=== PATIENT | male | born 1955 | race Caucasian/White ===

== ENCOUNTER 2016-04-28 12:47 | Emergency (ER) | payer SELFPAY ==
[~2016-04-28 12:47] MED LIST: Z.0.NO CURRENT MEDS
[2016-04-28 12:54] VITALS: BP 133/94; PULSE 73; RESP 20; TEMP 97.5; O2SAT 100
[2016-04-28] MEDS ORDERED: SODIUM CHLOR 0.9% 1000 ML INJ 1,000 ML IV SCH (13:23)
[2016-04-28] MEDS ORDERED: BACT800T5 PO (13:26)
[2016-04-28] MEDS ORDERED: TAMS0.4C4 PO (13:26)
--- NOTE | 2016-04-28 13:27 | PD ---
HPI Chief Complaint: Flank/Kidney Pain Time Seen by Provider: 13:23 Travel History International Travel<30 days: No Contact w/Intl Traveler<30days: No Traveled to known affect area: No History of Present Illness HPI 61-year-old male with history of kidney stones, presents to the ER today because he has had 3 days history of right flank pain and blood in the urine. He denies any fevers, vomiting, diarrhea, or any other symptoms. He states that the pain was a 10 out 10 last night but today is an 8 out of 10. Symptoms are occurring the same areas where he had kidney stones and he had talked to his primary care doctor, was told that he is possibly passing a stone and has been given Flomax and Bactrim. Modifying Factors: None Associated Signs & Symptoms: Right flank pain for 3 days Risk Factors: History of kidney stones PFSH Past Medical History Kidney Stones: Yes Social History Alcohol Use: Yes (OCCASIONALLY) Tobacco Use: No Substance Use: No Allergies-Medications (Allergen,Severity, Reaction): Coded Allergies: No Known Allergies (Verified , 04/28/16) Reported Meds & Prescriptions Reported Meds & Active Scripts Active Reported Tamsulosin (Tamsulosin HCl) 0.4 Mg Cap 0.4 Mg PO HS Bactrim DS (Sulfamethoxazole-Trimethoprim) 800-160 Mg Tab 1 Tab PO BID Review of Systems Except as stated in HPI: all other systems reviewed are Neg Physical Exam Narrative GENERAL: Well-nourished, well-developed elderly white male patient in no acute distress breath. SKIN: Warm and dry. HEAD: Normocephalic. EYES: No scleral icterus. No injection or drainage. NECK: Supple, trachea midline. CARDIOVASCULAR: Regular rate and rhythm without murmurs, gallops, or rubs. RESPIRATORY: Breath sounds equal bilaterally. No accessory muscle use. GASTROINTESTINAL: Abdomen soft, non-tender, nondistended. Benign. MUSCULOSKELETAL: No cyanosis, or edema. BACK: Nontender without obvious deformity. Mild right CVA tenderness. Data Data Last Documented VS Vital Signs Date Time Temp Pulse Resp B/P Pulse Ox O2 Delivery O2 Flow Rate FiO2 04/28/16 13:45 94 Room Air 04/28/16 13:40 69 16 116/71 04/28/16 12:54 97.5 Orders Complete Blood Count With Diff (04/28/16 13:23) Comprehensive Metabolic Panel (04/28/16 13:23) Lipase (04/28/16 13:23) Urinalysis - C+S If Indicated (04/28/16 13:23) Ct Abd/Pel W/O Iv Contrast (04/28/16 13:23) Iv Access Insert/Monitor (04/28/16 13:23) Ecg Monitoring (04/28/16 13:23) Oximetry (04/28/16 13:23) Morphine Inj (Morphine Inj) (04/28/16 13:30) Ondansetron Inj (Zofran Inj) (04/28/16 13:30) Sodium Chlor 0.9% 1000 Ml Inj (Ns 1000 M (04/28/16 13:23) Sodium Chloride 0.9% Flush (Ns Flush) (04/28/16 13:30) Labs Laboratory Tests Test 04/28/16 13:30 White Blood Count 8.1 TH/MM3 Red Blood Count 4.74 MIL/MM3 Hemoglobin 15.1 GM/DL Hematocrit 43.1 % Mean Corpuscular Volume 91.1 FL Mean Corpuscular Hemoglobin 31.9 PG Mean Corpuscular Hemoglobin 35.0 % Concent Red Cell Distribution Width 11.6 % Platelet Count 185 TH/MM3 Mean Platelet Volume 8.2 FL Neutrophils (%) (Auto) 75.3 % Lymphocytes (%) (Auto) 16.9 % Monocytes (%) (Auto) 5.9 % Eosinophils (%) (Auto) 0.8 % Basophils (%) (Auto) 1.1 % Neutrophils # (Auto) 6.0 TH/MM3 Lymphocytes # (Auto) 1.4 TH/MM3 Monocytes # (Auto) 0.5 TH/MM3 Eosinophils # (Auto) 0.1 TH/MM3 Basophils # (Auto) 0.1 TH/MM3 CBC Comment DIFF FINAL Differential Comment Urine Color YELLOW Urine Turbidity HAZY Urine pH 6.0 Urine Specific [place] 1.022 Urine Protein TRACE mg/dL Urine Glucose (UA) NEG mg/dL Urine Ketones 15 mg/dL Urine Occult Blood LARGE Urine Nitrite NEG Urine Bilirubin NEG Urine Leukocyte Esterase NEG Urine RBC INNUM /hpf Urine WBC 0-2 /hpf Urine Squamous Epithelial 0-5 /hpf Cells Urine Bacteria RARE /hpf Urine Mucus RARE /lpf Microscopic Urinalysis Comment CULT NOT INDICATED Sodium Level 140 MEQ/L Potassium Level 3.4 MEQ/L Chloride Level 105 MEQ/L Carbon Dioxide Level 24.1 MEQ/L Anion Gap 11 MEQ/L Blood Urea Nitrogen 24 MG/DL Creatinine 1.20 MG/DL Estimat Glomerular Filtration 61 ML/MIN Rate Random Glucose 120 MG/DL Calcium Level 9.0 MG/DL Total Bilirubin 0.6 MG/DL Aspartate Amino Transf 24 U/L (AST/SGOT) Alanine Aminotransferase 39 U/L (ALT/SGPT) Alkaline Phosphatase 64 U/L Total Protein 7.2 GM/DL Albumin 3.6 GM/DL Lipase 147 U/L MDM Medical Decision Making Medical Screen Exam Complete: Yes Emergency Medical Condition: Yes Medical Record Reviewed: Yes Interpretation(s) Laboratory Tests Test 04/28/16 13:30 Neutrophils (%) (Auto) 75.3 % (16.0-70.0) Urine Turbidity HAZY (CLEAR) Urine Ketones 15 mg/dL (NEG) Urine Occult Blood LARGE (NEG) Urine RBC INNUM /hpf (0-3) Urine Bacteria RARE /hpf (NONE) Potassium Level 3.4 MEQ/L (3.5-5.1) Blood Urea Nitrogen 24 MG/DL (7-18) Estimat Glomerular Filtration 61 ML/MIN (>89) Rate Random Glucose 120 MG/DL (74-106) Differential Diagnosis Right flank painrenal colic versus musculoskeletal versus pyelonephritis/UTI versus cholecystitis Narrative Course Labwork shows hematuria with no signs of UTI. His CT shows a 5 mm stone at the distal ureter, likely the cause of his current symptoms. At this point, my plan would be to release him with follow-up to primary care physician. Return for any worsening in symptoms as necessary. The plan has been discussed with him and he states understanding. Diagnosis Primary Impression: UNSPECIFIED RENAL COLIC Med/Other Pt SpecificInfo: Prescription(s) given Scripts Hydrocodone-Acetaminophen (Lortab)5-325 Mg Tab1 Tab PO Q6H PRN (PAIN) #12 TAB Ref 0 Prov:Richie Rader MD 04/28/16 Ibuprofen (Motrin Ib)200 Mg Nce577 Mg PO Q6H PRN (PAIN SCALE 1 TO 10) #20 TAB Ref 0 Prov:Richie Rader MD 04/28/16 Disposition: DISCHARGE HOME Condition: Stable Richie Rader MD Apr 28, 2016 13:27
[2016-04-28] MEDS ORDERED: SODIUM CHLORIDE 0.9% FLUSH 5 ML FLUSH IVF PRN (13:30)
[2016-04-28] MEDS ORDERED: ONDANSETRON HCL 4 MG/2 ML VIAL IVP ONE (13:30)
[2016-04-28] MEDS: MORPHINE SULFATE 4 MG/ML INJ IV PUSH ONE ×2 (13:30→13:39)
[2016-04-28 13:38] LABS: BASOPHIL # 0.1 TH/MM3 (0-0.2); BASOPHIL % 1.1 % (0.0-2.0); EOSINOPHIL # 0.1 TH/MM3 (0-0.4); EOSINOPHIL % 0.8 % (0.0-4.0); HEMATOCRIT 43.1 % (39.0-51.0); LYMPH % 16.9 % (9.0-44.0); LYMPHOCYTE # 1.4 TH/MM3 (1.0-4.8); MEAN CELL VOLUME 91.1 FL (80.0-100.0); MEAN CORPUSCULAR HEMOGLOBIN 31.9 PG (27.0-34.0); MONO % 5.9 % (0.0-8.0); NEUT % 75.3 % (16.0-70.0); PLATELET COUNT 185 TH/MM3 (150-450); RED BLOOD COUNT 4.74 MIL/MM3 (4.50-5.90); RED CELL DISTRIBUTION WIDTH 11.6 % (11.6-17.2); WHITE BLOOD COUNT 8.1 TH/MM3 (4.0-11.0)
[2016-04-28 13:40] VITALS: BP 116/71; PULSE 69; RESP 16; O2SAT 94
[2016-04-28 13:40] LABS: BLOOD, URINE LARGE (NEG); GLUCOSE,URINE NEG (NEG); KETONE, URINE 15 mg/dL (NEG); NITRITE,URINE NEG (NEG)
[2016-04-28 13:45] VITALS: O2SAT 94
[2016-04-28 13:48] LABS: CHLORIDE 105 MEQ/L (98-107); POTASSIUM 3.4 MEQ/L (3.5-5.1); SODIUM (NA) 140 MEQ/L (136-145); URINE COLOR YELLOW (YELLW/STRAW)
[2016-04-28 13:50] LABS: RBC, URINE INNUM /hpf (0-3); WBC, URINE 0-2 /hpf (0-5)
[2016-04-28 13:51] LABS: BACTERIA, URINE RARE /hpf; COMMENT (UR) CULT NOT INDICATED; CULTURE IF INDICATED CULT NOT INDICATED; MUCUS URINE RARE /lpf (OCC); SQUAMOUS EPITHELIAL CELL URINE 0-5 /hpf (0-5)
[2016-04-28 13:52] LABS: ANION GAP 11 MEQ/L (5-15); BICARBONATE 24.1 MEQ/L (21.0-32.0); BLOOD UREA NITROGEN 24 MG/DL (7-18)
[2016-04-28 13:53] LABS: HEMO FLAGS DIFF FINAL
[2016-04-28 13:55] LABS: ALT (GPT) 39 U/L (12-78); AST (GOT) 24 U/L (15-37); GLOMERULAR FILTRATION RATE 61 ML/MIN (>89)
[2016-04-28 13:56] LABS: TOTAL BILIRUBIN ADULT 0.6 MG/DL (0.2-1.0)
[2016-04-28 13:57] LABS: ALKALINE PHOSPHATASE 64 U/L (45-117)
--- NOTE | 2016-04-28 14:28 | RADHPO ---
EXAM DATE/TIME: 04/28/2016 14:01 [facility] COMPARISON: No previous studies available for comparison. INDICATIONS : Right flank pain x 3 days. ORAL CONTRAST: No oral contrast ingested. RADIATION DOSE: 11.01 CTDIvol (mGy) MEDICAL HISTORY : Renal calculi. SURGICAL HISTORY : Lithotripsy. ENCOUNTER: Initial ACUITY: 3 days PAIN SCALE: 8/10 LOCATION: Right flank TECHNIQUE: Volumetric scanning of the abdomen and pelvis was performed. Using automated exposure control and ad justment of the mA and/or kV according to patient size, radiation dose was kept as low as reasonably achievable to obtain optimal diagnostic quality images. The lack of IV contrast limits the diagnosis for certain organ pathology. FINDINGS: LOWER LUNGS: The visualized lower lungs are clear. LIVER: Homogeneous density without lesion. There is no dilation of the biliary tree. No calcified gallston es. SPLEEN: Normal size without lesion. PANCREAS: Within normal limits. KIDNEYS: There is hydronephrosis the right collecting system. The left collecting system is unremarkable. No c alcified renal stones are demonstrated. The right ureter is dilated. There is a 5 mm stone in the dis refugio right ureter approximately 3 cm above the right UVJ. This is causing hydronephrosis. ADRENAL GLANDS: Within normal limits. VASCULAR: There is no aortic aneurysm. BOWEL/MESENTERY: The stomach, small bowel, and colon demonstrate no acute abnormality. There is no free intraperitone al air or fluid. ABDOMINAL WALL: Within normal limits. RETROPERITONEUM: There is no lymphadenopathy. BLADDER: No wall thickening or mass. REPRODUCTIVE: Within normal limits. INGUINAL: There is no lymphadenopathy or hernia. MUSCULOSKELETAL: Within normal limits for patient age. CONCLUSION: 5 mm calcified stone in the distal right ureter causing hydronephrosis of the right collecting system . Torey Altamirano MD on April 28, 2016 at 14:24 Board Certified Radiologist. This report was verified electronically.
[2016-04-28] MEDS ORDERED: MOTR200T4 PO (14:39)
[2016-04-28] MEDS ORDERED: HYDR-3533 PO (14:39)
[2016-04-28 14:45] VITALS: BP 130/88; PULSE 80; RESP 16; O2SAT 95
== END 2016-04-28 14:50 | disposition home or self-care (01) ==
LOC: PHED 12:47
DX: N23 Unspecified renal colic (principal); N20.1 Calculus of ureter; Z87.442 Personal history of urinary calculi
CPT/HCPCS: 74176; 80053; 81001; 83690; 85025; 96361; 96374; 99284; J2405; J7030; J2270